=== PATIENT | female | born 1985 | race Caucasian/White ===

== ENCOUNTER → 2017-11-15 | Outpatient (REF) | payer OTHER | LOC: M SFHCLERA 19:35 | DX: J02.9 Acute pharyngitis, unspecified (principal) ==

== ENCOUNTER → 2021-11-01 | Outpatient (REF) ==
[~2021-11-01] MED LIST: DOCU10CA PO; IBUP80TA PO; PERCOCET PO; PRENTAB16 PO
== END ==
LOC: M LABSMTC 09:16
PROVIDERS: ATTEND Pediatrics
DX: Z20.822 Contact with and (suspected) exposure to COVID-19 (principal)

== ENCOUNTER 2022-02-20 09:59 | Day surgery (SDC) | payer OTHER ==
[~2022-02-20] VITALS: Ht 160 cm; Wt 92.4 kg
[~2022-02-20 09:59] MED LIST changes: +ACETAMINOPHEN 650 MG SUPP PR ONE; +FLUO20CA22 PO; +GABA600T4 PO; +NORE5TAB PO; +NS 1,000 ML IV SCH
[2022-02-20] MEDS ORDERED: LR 1,000 ML IV SCH ×2 (10:15→14:35)
[2022-02-20] MEDS ORDERED: LIDOCAINE 1% SDV 5ML VIAL SC PRN (10:15)
[2022-02-20 10:31] LABS: HEMATOCRIT 45.1 % (36.0-47.0); HEMOGLOBIN 15.2 g/dl (12.0-15.5); MEAN CORPUSCULAR HEMOGLOBIN 29.3 pg (27.0-33.0); MEAN CORPUSCULAR HGB CONC 33.7 g/dl (32.0-36.5); MEAN CORPUSCULAR VOLUME 86.9 fl (80.0-96.0); PLATELET COUNT, AUTOMATED 425 10^3/uL (150-450); RED BLOOD COUNT 5.19 10^6/uL (4.00-5.40); WHITE BLOOD COUNT 5.7 10^3/uL (4.0-10.0)
[2022-02-20 11:02] LABS: BLOOD UREA NITROGEN 8 MG/DL (7-18); CARBON DIOXIDE LEVEL 31 MEQ/L (21-32); CHLORIDE LEVEL 110 MEQ/L (98-107); CREATININE FOR GFR 0.96 MG/DL (0.55-1.30); GLOMERULAR FILTRATION RATE > 60.0 (>60); GLUCOSE, FASTING 91 MG/DL (70-100); HCG, SERUM QUANTITATIVE < 1.0 MIU/ML; POTASSIUM SERUM 4.3 MEQ/L (3.5-5.1); SODIUM LEVEL 144 MEQ/L (136-145)
[2022-02-20] MEDS ORDERED: MIDAZOLAM INJ 2MG/2ML VIAL (J2250 PER 1MG) As Ordered ONE ×2 (12:01→14:39)
[2022-02-20] MEDS ORDERED: fentaNYL 100 MCG/2 ML INJECTION As Ordered ONE ×2 (12:02→14:39)
[2022-02-20] MEDS ORDERED: ACETAMINOPHEN 650 MG SUPP As Ordered ONE (13:07)
[2022-02-20] MEDS ORDERED: BUPIVACAINE HCL 0.5% 30ML VIAL As Ordered ONE (13:08)
[2022-02-20] MEDS ORDERED: SCOPOLAMINE 1MG TRANSDERMAL PATCH As Ordered ONE (13:21)
[2022-02-20] MEDS ORDERED: propofoL 200 MG/20 ML VIAL As Ordered ONE ×2 (13:38→13:46)
[2022-02-20] MEDS ORDERED: ROCURONIUM BROMIDE 50 MG/5 ML VIAL As Ordered ONE (13:38)
[2022-02-20] MEDS ORDERED: dexameTHASONE 4 MG/ML 1ML VIAL (J1100 PER 1MG) As Ordered ONE (13:39)
[2022-02-20] MEDS ORDERED: ONDANSETRON 4MG/2ML VIAL As Ordered ONE (13:39)
[2022-02-20] MEDS ORDERED: LIDOCAINE 2% 100MG/5ML SDV (FOR ANES.) As Ordered ONE (13:39)
[2022-02-20] MEDS ORDERED: SUGAMMADEX SODIUM 500 MG/5 ML VIAL (BRIDION) As Ordered ONE (13:49)
[2022-02-20] MEDS ORDERED: ONDANSETRON 4MG/2ML VIAL IV PRN (14:35)
[2022-02-20] MEDS ORDERED: fentaNYL 100 MCG/2 ML INJECTION IV PRN (14:35)
[2022-02-20] MEDS ORDERED: oxyCODONE 5MG TAB PO PRN (14:35)
[2022-02-20] MEDS: MORPHINE 2 MG/ML 1ML VIAL IV PRN ×2 (14:56→15:06)
[2022-02-20 16:56] VITALS: BP 136/78
[2022-02-20] MEDS ORDERED: KETOROLAC 30 MG/ML 1ML VIAL IV SCH (20:00)
== END 2022-02-20 16:56 | disposition home or self-care (01) ==
LOC: M SDC 09:59
PROVIDERS: ATTEND Obstetrics & Gynecology
DX: N73.6 Female pelvic peritoneal adhesions (postinfective) (principal); Z79.899 Other long term (current) drug therapy; K21.9 Gastro-esophageal reflux disease without esophagitis; F32.A Depression, unspecified; F41.9 Anxiety disorder, unspecified; Z88.8 Allergy status to other drugs, medicaments and biological substances
CPT/HCPCS: 36415; 58660; 80048; 84702; 85027; J1100; J2250; J2270; J2405; J3010

== ENCOUNTER → 2023-07-15 | Outpatient (REF) | payer OTHER ==
[~2023-07-15] MED LIST changes: -ACETAMINOPHEN 650 MG SUPP PR ONE; -NS 1,000 ML IV SCH
== END ==
LOC: M LAB 14:17 → EDSTATUS 07-16 14:58
PROVIDERS: ATTEND Nurse Practitioner Adult Health
DX: Z00.00 Encounter for general adult medical examination without abnormal findings (principal)

== ENCOUNTER → 2023-11-12 | Outpatient (REF) | payer OTHER | LOC: M LAB REF 16:22 | PROVIDERS: ATTEND Physician Assistant | DX: J02.9 Acute pharyngitis, unspecified (principal) ==

== ENCOUNTER 2024-04-10 21:12 | Inpatient (IN) | payer OTHER ==
[~2024-04-10] VITALS: Ht 160 cm; Wt 93.1 kg
[~2024-04-10 21:12] MED LIST changes: +CEFD1CAP9 PO; +FLUO-365 PO; -FLUO20CA22 PO
[2024-04-10] MEDS: ONDANSETRON 4MG ORAL DISINTEGRATING TAB PO ONE (23:11)
[2024-04-10] MEDS: KETOROLAC 60MG 2ML VIAL IM ONE (23:11)
[2024-04-11] VITALS (8 sets, daily range): BP systolic 120–156; BP diastolic 76–86; TEMP 96.3–100.2; O2SAT 95–97
[2024-04-11 00:50] LABS: BASO % 0.2 % (0.0-1.0); HEMOGLOBIN 14.4 g/dl (12.0-15.5); LYMPH # 1.7 10^3/uL (1.5-5.0); LYMPH % 11.8 % (24.0-44.0); MEAN CORPUSCULAR HEMOGLOBIN 29.9 pg (27.0-33.0); MEAN CORPUSCULAR HGB CONC 35.1 g/dl (32.0-36.5); MEAN CORPUSCULAR VOLUME 85.2 fl (80.0-96.0); MONO # 0.7 10^3/uL (0.0-0.8); MONO % 5.1 % (2.0-8.0); NEUTROPHILS # 11.8 10^3/uL (1.5-8.5); NEUTROPHILS % 82.6 % (36.0-66.0); PLATELET COUNT, AUTOMATED 407 10^3/uL (150-450); RED BLOOD COUNT 4.81 10^6/uL (4.00-5.40); WHITE BLOOD COUNT 14.3 10^3/uL (4.0-10.0)
[2024-04-11] MEDS: NS 1,000 ML IV ONE (01:03)
[2024-04-11 01:11] LABS: HCG, SERUM QUALITATIVE NEGATIVE (NEGATIVE)
[2024-04-11 01:13] LABS: BLOOD UREA NITROGEN 13 MG/DL (9-23); CALCIUM LEVEL 9.4 MG/DL (8.5-10.1); CARBON DIOXIDE LEVEL 23 MMOL/L (20-31); CHLORIDE LEVEL 105 MMOL/L (98-107); CREATININE FOR GFR 0.89 MG/DL (0.55-1.30); GLOMERULAR FILTRATION RATE > 60.0 (>60); GLUCOSE, FASTING 91 MG/DL (60-100); POTASSIUM SERUM 4.1 MMOL/L (3.5-5.1); SODIUM LEVEL 136 MMOL/L (136-145)
[2024-04-11] MEDS ORDERED: MOM 30ML SUSPENSION UDC PO PRN (04:25)
[2024-04-11] MEDS ORDERED: GABA-282 PO (04:57)
[2024-04-11] MEDS ORDERED: IBUP-1022 PO (04:57)
[2024-04-11] MEDS ORDERED: FLOM0.4C39 PO (04:57)
[2024-04-11] MEDS ORDERED: FLUO1TAB PO (04:57)
[2024-04-11] MEDS ORDERED: FLUO40CA PO (04:57)
[2024-04-11] MEDS ORDERED: IBUP200T46 PO (04:59)
[2024-04-11] MEDS ORDERED: IBUP200C25 PO (04:59)
[2024-04-11] MEDS ORDERED: HOME MED LIST COMPLETE! XX SCH (05:00)
[2024-04-11 05:11] LABS: PROCALCITONIN <0.04 ng/ml
[2024-04-11] MEDS: cefTRIAXone SOD 1 GM in D5W MINI-BAG PLUS 50 ML IV SCH (05:12)
[2024-04-11] MEDS: NS 1,000 ML IV SCH (05:12)
[2024-04-11] MEDS: KETOROLAC 30 MG/ML 1ML VIAL IV PRN (05:13)
[2024-04-11] MEDS: ONDANSETRON 4MG 2ML VIAL IV PRN (05:13)
[2024-04-11] MEDS ORDERED: oxyCODONE 5MG TAB PO PRN (11:30)
[2024-04-11] MEDS ORDERED: fentaNYL 100 MCG/2 ML INJECTION IV PRN (11:30)
[2024-04-11] MEDS ORDERED: ONDANSETRON 4MG 2ML VIAL IV PRN (11:30)
[2024-04-11] MEDS ORDERED: HYDROMORPHONE HCL 0.5 MG/ 0.5 ML SYRINGE IV PRN (11:30)
[2024-04-11] MEDS ORDERED: MEPERIDINE 25 MG/ML 1ML VIAL IV PRN (11:30)
[2024-04-11] MEDS ORDERED: fentaNYL 100 MCG/2 ML INJECTION As Ordered ONE (15:11)
[2024-04-11] MEDS ORDERED: MIDAZOLAM INJ 2MG/2ML VIAL As Ordered ONE (15:11)
[2024-04-11] MEDS ORDERED: propofoL 200 MG/20 ML VIAL As Ordered ONE (15:12)
[2024-04-11] MEDS ORDERED: LIDOCAINE 2% 100MG/5ML SDV (FOR ANES.) As Ordered ONE (15:12)
[2024-04-11] MEDS ORDERED: ONDANSETRON 4MG 2ML VIAL As Ordered ONE (15:14)
[2024-04-11] MEDS ORDERED: KETOROLAC 60MG 2ML VIAL As Ordered ONE (15:14)
[2024-04-11] MEDS: ceFAZolin 2 GM/D5W 50 ML IV BAG As Ordered ONE (15:50)
[2024-04-11] MEDS: ISOVUE-300 61% 100ML VIAL As Ordered ONE (16:05)
[2024-04-11] MEDS: ACETAMINOPHEN TAB 650MG DOSE (2X325MG) PO PRN (19:55)
[2024-04-12 02:41] VITALS: BP 122/70; TEMP 98.6; O2SAT 97
[2024-04-12 06:12] VITALS: BP 126/71; TEMP 98.8; O2SAT 97
[2024-04-12 06:38] LABS: HEMATOCRIT 38.6 % (36.0-47.0); HEMOGLOBIN 13.2 g/dl (12.0-15.5); MEAN CORPUSCULAR HEMOGLOBIN 29.8 pg (27.0-33.0); MEAN CORPUSCULAR HGB CONC 34.2 g/dl (32.0-36.5); MEAN CORPUSCULAR VOLUME 87.1 fl (80.0-96.0); PLATELET COUNT, AUTOMATED 372 10^3/uL (150-450); RED BLOOD COUNT 4.43 10^6/uL (4.00-5.40); WHITE BLOOD COUNT 7.2 10^3/uL (4.0-10.0)
[2024-04-12 07:03] LABS: ALBUMIN 3.4 G/DL (3.2-5.2); ALKALINE PHOSPHATASE 51 U/L (46-116); ALT/SGPT 19 U/L (7.0-40); AST/SGOT 14 U/L (<34); BILIRUBIN,TOTAL 0.4 MG/DL (0.3-1.2); BLOOD UREA NITROGEN 10 MG/DL (9-23); CALCIUM LEVEL 8.8 MG/DL (8.5-10.1); CARBON DIOXIDE LEVEL 25 MMOL/L (20-31); CHLORIDE LEVEL 107 MMOL/L (98-107); CREATININE FOR GFR 0.86 MG/DL (0.55-1.30); GLOMERULAR FILTRATION RATE > 60.0 (>60); GLUCOSE, FASTING 87 MG/DL (60-100); POTASSIUM SERUM 3.9 MMOL/L (3.5-5.1); SODIUM LEVEL 138 MMOL/L (136-145); TOTAL PROTEIN 6.4 G/DL (5.7-8.2)
[2024-04-12] MEDS ORDERED: CIPR-249 PO (07:29)
[2024-04-12] MEDS ORDERED: CIPR500S PO (10:17)
[2024-04-12 10:29] VITALS: BP 124/58; TEMP 99.1; O2SAT 97
== END 2024-04-12 11:35 | disposition home or self-care (01) | DRG 694 ==
LOC: M ED 21:12 → M ED INP 04-11 04:22 → M MS5PR 04-11 12:15
PROVIDERS: ADMIT Internal Medicine; ATTEND Hospitalist
PROC: 0TC78ZZ Extirpation of Matter from Left Ureter, Via Natural or Artificial Opening Endoscopic (ICD-10-PCS; principal; 2024-04-11 16:00)
DX: N13.2 Hydronephrosis with renal and ureteral calculous obstruction (principal); E66.9 Obesity, unspecified; Z88.8 Allergy status to other drugs, medicaments and biological substances; Z79.899 Other long term (current) drug therapy

== ENCOUNTER → 2024-09-21 | Outpatient (REF) ==
[~2024-09-21] MED LIST changes: +CIPR-249 PO; +CIPR500S PO; +FLOM0.4C39 PO; +FLUO1TAB PO; +FLUO40CA PO; +GABA-1172 PO; +GABA-1490 PO; -GABA600T4 PO; +IBUP-1022 PO; +IBUP200C25 PO; +IBUP200T46 PO
== END ==
LOC: M EMP 10:15
PROVIDERS: ATTEND Family Medicine
DX: Z01.89 Encounter for other specified special examinations (principal)